=== PATIENT | male | born 1940 | race Caucasian/White ===

== ENCOUNTER 2021-01-27 10:47 | Emergency (ER) | payer OTHER, BC ==
[2021-01-27 10:55] VITALS: BP 117/71; PULSE 75; TEMP 98; BMI 33.9
== END 2021-01-27 17:32 | disposition home or self-care (01) ==
LOC: JERFT 10:47 → JER 10:47 → JERFT 17:32
DX: M76.62 Achilles tendinitis, left leg (principal); M77.32 Calcaneal spur, left foot
CPT/HCPCS: 73610-TC-LT-FY; 73630-TC-LT; 99284-25